=== PATIENT | female | born 1950 | race Caucasian/White ===

== ENCOUNTER 2024-04-18 11:27 | Inpatient (IN) | payer MEDICARE, OTHER ==
[~2024-04-18] VITALS: Ht 152.4 cm; Wt 54.4 kg
[2024-04-18] MEDS ORDERED: ATEN50TA PO (11:46)
[2024-04-18] MEDS ORDERED: [UNRECOGNIZED DRUG - OTHER] (11:46)
[2024-04-18] MEDS ORDERED: MAGNESIUM CITRATE (11:46)
[2024-04-18] MEDS ORDERED: TELM40TA2 PO (11:46)
[2024-04-18] MEDS ORDERED: [UNRECOGNIZED DRUG - OTHER] (11:46)
[2024-04-18 12:11] LABS: BASOPHILS # (AUTO) 0.1 K/UL (0.0-0.2); BASOPHILS % (AUTO) 1.1 % (0.0-2.0); EOSINOPHILS # (AUTO) 0.1 K/uL (0.0-0.7); EOSINOPHILS % (AUTO) 0.9 % (0.0-7.0); HEMATOCRIT 33.1 % (31.2-41.9); HEMOGLOBIN 11.4 g/dL (10.9-14.3); LYMPHOCYTES # (AUTO) 1.6 K/uL (0.8-4.8); LYMPHOCYTES % (AUTO) 23.9 % (20.5-51.5); MEAN CORPUSCULAR HEMOGLOBIN 29.7 uug (24.7-32.8); MEAN CORPUSCULAR HGB CONC 34 g/dL (32.3-35.6); MEAN CORPUSCULAR VOLUME 86.4 fL (75.5-95.3); MONOCYTES # (AUTO) 0.7 K/uL (0.1-1.30); MONOCYTES % (AUTO) 9.7 % (0.0-11.0); NEUTROPHILS # (AUTO) 4.4 K/uL (1.8-8.9); NEUTROPHILS % (AUTO) 64.4 % (38.5-71.5); PLATELET COUNT (AUTO) 390 K/uL (179-408); RED BLOOD CELL COUNT(AUTO) 3.83 MIL/uL (3.63-4.92); WHITE BLOOD COUNT (AUTO) 6.8 K/uL (3.8-11.8)
[2024-04-18 12:17] LABS: DIFFERENTIAL COMMENT 1
[2024-04-18 12:24] LABS: ERYTHROCYTE SEDIMENTATION RATE 57 MM/HR (0-20)
[2024-04-18 13:23] LABS: ALANINE AMINOTRANSFERASE 16 U/L (14-59); ALBUMIN 2.7 g/dL (3.4-5.0); ALKALINE PHOSPHATASE 86 U/L (50-136); ASPARTATE AMINOTRANSFERASE 15 U/L (15-37); BILIRUBIN,TOTAL 0.8 mg/dL (0.2-1.0); CALCIUM 7.9 mg/dL (8.5-10.1); CARBON DIOXIDE 30 mmol/L (21-32); CHLORIDE 81 mmol/L (98-107); CREATININE 0.6 mg/dL (0.6-1.3); GLUCOSE 112 mg/dL (74-106); TOTAL PROTEIN, SERUM 6.5 g/dL (6.4-8.2); UREA NITROGEN, BLOOD 12 mg/dL (7-18)
[2024-04-18 13:27] LABS: POTASSIUM 2.6 mmol/L (3.5-5.1); SODIUM SERUM 117 mmol/L (136-145)
[2024-04-18] MEDS ORDERED: POTASSIUM BICARBONATE/CIT AC 25 MEQ TABLET.EFF ONE (13:53)
[2024-04-18] MEDS ORDERED: MAGNESIUM SULFATE/D5W 300 ML ONE (13:53)
[2024-04-18] MEDS: POTASSIUM BICARBONATE/CIT AC 25 MEQ TABLET.EFF PO ONE (14:03)
[2024-04-18] MEDS: IV NS 1000 ML 1,000 ML IV ONE (14:03)
[2024-04-18] MEDS: MAGNESIUM SULFATE/D5W 100 ML IV SCH (14:03)
[2024-04-18 14:09] LABS: *BILIRUBIN,URIN NEGATIVE (NEGATIVE); *BLOOD, URINE NEGATIVE (NEGATIVE); *CLARITY,URINE CLEAR (CLEAR); *COLOR,URINE YELLOW (YELLOW); *KETONES,URINE NEGATIVE (NEGATIVE); *PROTEIN,URINE 1+ (NEGATIVE); *UROBILINOGEN,URINE 0.2 E.U./dl (NORMAL); LEUKOCYTE ESTERASE ,URINE 1+ (NEGATIVE); NITRITE, URINE NEGATIVE (NEGATIVE); UGLUCOSE NEGATIVE (NEGATIVE)
[2024-04-18 14:17] LABS: *SODIUM RNDM,URINE 59 mmol/L (40-220)
[2024-04-18] MEDS ORDERED: hydrALAZINE HCL 20 MG/1 ML VIAL ONE (15:08)
[2024-04-18] MEDS: hydrALAZINE HCL 20 MG/1 ML VIAL IV ONE (15:16)
[2024-04-18 15:50] VITALS: BP 133/63; TEMP 98.2; O2SAT 95
[2024-04-18] MEDS ORDERED: ZOLPIDEM 5 MG TABLET PO PRN (16:45)
[2024-04-18 17:09] LABS: RBC,URINE 0-3 /HPF (0-3)
[2024-04-18 17:55] LABS: THYROID STIMULATING HORMONE 0.953 mIU/mL (0.358-3.740)
[2024-04-18 20:59] VITALS: BP 151/68; TEMP 98.1; O2SAT 97
[2024-04-18] MEDS: IV NS 1000 ML 1,000 ML IV PRN (23:10)
[2024-04-19] MEDS: MAGNESIUM HYDROXIDE 30 ML LIQUID UDC PO PRN (04:06)
[2024-04-19] MEDS: ACETAMINOPHEN 325 MG TABLET PO PRN (04:07)
[2024-04-19 06:11] VITALS: BP 142/70; TEMP 97.8; O2SAT 97
[2024-04-19] MEDS: PANTOPRAZOLE SODIUM 40 MG TABLET.DR PO SCH (06:55)
[2024-04-19 08:00] VITALS: BP 150/77; TEMP 98.4; O2SAT 96
[2024-04-19 08:02] LABS: BASOPHILS # (AUTO) 0.1 K/UL (0.0-0.2); BASOPHILS % (AUTO) 1.7 % (0.0-2.0); EOSINOPHILS % (AUTO) 0.4 % (0.0-7.0); HEMATOCRIT 33.1 % (31.2-41.9); HEMOGLOBIN 11.5 g/dL (10.9-14.3); LYMPHOCYTES # (AUTO) 1.5 K/uL (0.8-4.8); LYMPHOCYTES % (AUTO) 21.1 % (20.5-51.5); MEAN CORPUSCULAR HEMOGLOBIN 29.9 uug (24.7-32.8); MEAN CORPUSCULAR HGB CONC 35 g/dL (32.3-35.6); MEAN CORPUSCULAR VOLUME 85.9 fL (75.5-95.3); MONOCYTES # (AUTO) 0.6 K/uL (0.1-1.30); MONOCYTES % (AUTO) 8.7 % (0.0-11.0); NEUTROPHILS % (AUTO) 68.1 % (38.5-71.5); PLATELET COUNT (AUTO) 411 K/uL (179-408); RED BLOOD CELL COUNT(AUTO) 3.85 MIL/uL (3.63-4.92); WHITE BLOOD COUNT (AUTO) 7.3 K/uL (3.8-11.8)
[2024-04-19 08:28] LABS: CALCIUM 8.4 mg/dL (8.5-10.1); CARBON DIOXIDE 30 mmol/L (21-32); CHLORIDE 86 mmol/L (98-107); CREATININE 0.5 mg/dL (0.6-1.3); GLUCOSE 107 mg/dL (74-106); MAGNESIUM 1.6 mg/dL (1.8-2.4); PHOSPHOROUS 3.3 mg/dL (2.5-4.9); SODIUM SERUM 123 mmol/L (136-145); UREA NITROGEN, BLOOD 8 mg/dL (7-18)
[2024-04-19 08:30] VITALS: BP 181/81; O2SAT 96
[2024-04-19 08:30] LABS: POTASSIUM 2.3 mmol/L (3.5-5.1)
[2024-04-19] MEDS: POTASSIUM CHLORIDE 50 ML IV SCH (10:51)
[2024-04-19 11:01] VITALS: BP 153/71; TEMP 99.7; O2SAT 95
[2024-04-19] MEDS: MAGNESIUM OXIDE 400 MG TABLET PO ONE (11:16)
[2024-04-19] MEDS: ONDANSETRON 4 MG/2 ML VIAL IV PRN (13:36)
[2024-04-19] MEDS ORDERED: DIATR MEGLU/DIATRIZOATE SODIUM 30 ML BOTTLE ONE (14:19)
[2024-04-19] MEDS: ATENOLOL 50 MG TABLET PO SCH ×2 (14:36→21:27)
[2024-04-19] MEDS: LOSARTAN POTASSIUM 50 MG TABLET PO SCH (14:36)
[2024-04-19] MEDS: MAGNESIUM SULFATE/D5W 100 ML IV SCH (15:06)
[2024-04-19 15:07] LABS: *CREATININE,URINE 16.8 mg/dL (30-125)
[2024-04-19 15:11] VITALS: BP 171/82; TEMP 98.2; O2SAT 96
[2024-04-19 19:18] LABS: BASOPHILS # (AUTO) 0.1 K/UL (0.0-0.2); BASOPHILS % (AUTO) 1.1 % (0.0-2.0); EOSINOPHILS % (AUTO) 0.2 % (0.0-7.0); HEMATOCRIT 32.2 % (31.2-41.9); HEMOGLOBIN 10.8 g/dL (10.9-14.3); LYMPHOCYTES # (AUTO) 1.4 K/uL (0.8-4.8); LYMPHOCYTES % (AUTO) 12.3 % (20.5-51.5); MEAN CORPUSCULAR HEMOGLOBIN 29.4 uug (24.7-32.8); MEAN CORPUSCULAR HGB CONC 34 g/dL (32.3-35.6); MEAN CORPUSCULAR VOLUME 87.2 fL (75.5-95.3); MONOCYTES # (AUTO) 0.7 K/uL (0.1-1.30); MONOCYTES % (AUTO) 6.3 % (0.0-11.0); NEUTROPHILS # (AUTO) 9.1 K/uL (1.8-8.9); NEUTROPHILS % (AUTO) 80.1 % (38.5-71.5); PLATELET COUNT (AUTO) 381 K/uL (179-408); RED BLOOD CELL COUNT(AUTO) 3.69 MIL/uL (3.63-4.92); WHITE BLOOD COUNT (AUTO) 11.4 K/uL (3.8-11.8)
[2024-04-19 19:20] LABS: DIFFERENTIAL COMMENT 1
[2024-04-19 19:32] LABS: CALCIUM 8.5 mg/dL (8.5-10.1); CARBON DIOXIDE 28 mmol/L (21-32); CHLORIDE 85 mmol/L (98-107); CREATININE 0.6 mg/dL (0.6-1.3); GLUCOSE 141 mg/dL (74-106); POTASSIUM 3.1 mmol/L (3.5-5.1); UREA NITROGEN, BLOOD 9 mg/dL (7-18)
[2024-04-19 19:43] LABS: SODIUM SERUM 122 mmol/L (136-145)
[2024-04-19 20:30] VITALS: BP 176/74; TEMP 98.4; O2SAT 98
[2024-04-20] VITALS (7 sets, daily range): BP systolic 124–185; BP diastolic 61–76; TEMP 97.2–98.4; O2SAT 95–98
[2024-04-20 08:06] LABS: CALCIUM 8.4 mg/dL (8.5-10.1); CARBON DIOXIDE 28 mmol/L (21-32); CHLORIDE 90 mmol/L (98-107); CREATININE 0.5 mg/dL (0.6-1.3); GLUCOSE 106 mg/dL (74-106); MAGNESIUM 1.5 mg/dL (1.8-2.4); PHOSPHOROUS 3.1 mg/dL (2.5-4.9); POTASSIUM 2.8 mmol/L (3.5-5.1); SODIUM SERUM 125 mmol/L (136-145); UREA NITROGEN, BLOOD 7 mg/dL (7-18)
[2024-04-20 08:57] LABS: URIC ACID 1.3 mg/dL (2.6-6.0)
[2024-04-20] MEDS ORDERED: POTASSIUM CHLORIDE 50 ML IV SCH (09:45)
[2024-04-20] MEDS: POTASSIUM CHLORIDE 10 MEQ TAB.PRT.SR PO SCH (09:54)
[2024-04-20] MEDS: MAGNESIUM SULFATE/D5W 100 ML IV SCH (09:55)
[2024-04-20] MEDS: POTASSIUM CHLORIDE 50 ML IV SCH (10:41)
[2024-04-20] MEDS: CLONIDINE-TTS 1 PATCH TD SCH (11:26)
[2024-04-20] MEDS ORDERED: IV NORMAL SALINE 250 ML IV ONE (15:39)
[2024-04-20] MEDS ORDERED: IOHEXOL 300MG/ML 100 ML INFUS..BTL ONE (15:39)
[2024-04-20] MEDS ORDERED: SWABABLE VALVE TRANSFER SET EA MC ONE (15:39)
[2024-04-21 00:13] VITALS: BP 154/70; TEMP 98.1; O2SAT 96
[2024-04-21] MEDS: BISACODYL 10 MG SUPP.RECT RC PRN (06:12)
[2024-04-21 06:52] VITALS: BP 145/70; TEMP 97.2; O2SAT 97
[2024-04-21 07:47] LABS: BASOPHILS # (AUTO) 0.1 K/UL (0.0-0.2); BASOPHILS % (AUTO) 0.9 % (0.0-2.0); EOSINOPHILS % (AUTO) 0.5 % (0.0-7.0); HEMATOCRIT 31.6 % (31.2-41.9); HEMOGLOBIN 11.1 g/dL (10.9-14.3); LYMPHOCYTES # (AUTO) 0.9 K/uL (0.8-4.8); LYMPHOCYTES % (AUTO) 9.9 % (20.5-51.5); MEAN CORPUSCULAR HEMOGLOBIN 30.8 uug (24.7-32.8); MEAN CORPUSCULAR HGB CONC 35 g/dL (32.3-35.6); MEAN CORPUSCULAR VOLUME 87.4 fL (75.5-95.3); MONOCYTES # (AUTO) 0.7 K/uL (0.1-1.30); MONOCYTES % (AUTO) 7.6 % (0.0-11.0); NEUTROPHILS # (AUTO) 7.3 K/uL (1.8-8.9); NEUTROPHILS % (AUTO) 81.1 % (38.5-71.5); PLATELET COUNT (AUTO) 404 K/uL (179-408); RED BLOOD CELL COUNT(AUTO) 3.62 MIL/uL (3.63-4.92); RED CELL DISTRIBUTION WIDTH 15.9 % (12.3-17.7)
[2024-04-21 07:48] VITALS: BP 146/68; TEMP 97.8; O2SAT 97
[2024-04-21 08:01] LABS: DIFFERENTIAL COMMENT 1
[2024-04-21 08:22] LABS: CALCIUM 8.8 mg/dL (8.5-10.1); CARBON DIOXIDE 28 mmol/L (21-32); CHLORIDE 89 mmol/L (98-107); CREATININE 0.6 mg/dL (0.6-1.3); GLUCOSE 120 mg/dL (74-106); MAGNESIUM 1.3 mg/dL (1.8-2.4); SODIUM SERUM 126 mmol/L (136-145); UREA NITROGEN, BLOOD 11 mg/dL (7-18)
[2024-04-21 08:29] LABS: POTASSIUM 2.6 mmol/L (3.5-5.1)
[2024-04-21] MEDS ORDERED: QUETIAPINE FUMARATE 25 MG TABLET PO PRN (08:45)
[2024-04-21] MEDS ORDERED: SWABABLE VALVE TRANSFER SET EA MC ONE (09:47)
[2024-04-21] MEDS ORDERED: IOHEXOL 350 100 ML INFUS..BTL ONE (09:47)
[2024-04-21] MEDS ORDERED: IV NORMAL SALINE 250 ML IV ONE (09:47)
[2024-04-21] MEDS ORDERED: POTASSIUM CHLORIDE 10 MEQ TAB.PRT.SR PO ONE (10:30)
[2024-04-21] MEDS: POTASSIUM CHLORIDE 50 ML IV SCH (10:37)
[2024-04-21] MEDS: POTASSIUM CHLORIDE 20 MEQ TAB.PRT.SR PO ONE (10:57)
[2024-04-21] MEDS: MAGNESIUM SULFATE/D5W 100 ML IV SCH (11:41)
[2024-04-21 11:54] VITALS: BP 162/83; TEMP 98.4; O2SAT 98
[2024-04-21 11:54] LABS: THYROID STIMULATING HORMONE 1.16 mIU/mL (0.358-3.740)
[2024-04-21] MEDS ORDERED: MAGNESIUM SULFATE/D5W 100 ML IV SCH (14:15)
[2024-04-21 16:08] VITALS: BP 149/69; TEMP 98.2; O2SAT 97
[2024-04-21 19:50] VITALS: BP 146/75; TEMP 98.3; O2SAT 96
[2024-04-22 06:01] VITALS: BP 154/77; TEMP 98.3; O2SAT 96
[2024-04-22 07:37] LABS: CALCIUM 8.5 mg/dL (8.5-10.1); CARBON DIOXIDE 28 mmol/L (21-32); CHLORIDE 91 mmol/L (98-107); CREATININE 0.6 mg/dL (0.6-1.3); GLUCOSE 116 mg/dL (74-106); MAGNESIUM 1.7 mg/dL (1.8-2.4); PHOSPHOROUS 3.5 mg/dL (2.5-4.9); POTASSIUM 3.2 mmol/L (3.5-5.1); SODIUM SERUM 126 mmol/L (136-145); UREA NITROGEN, BLOOD 11 mg/dL (7-18)
[2024-04-22 07:38] VITALS: BP 138/73; TEMP 98.6; O2SAT 95
[2024-04-22 07:40] LABS: BASOPHILS # (AUTO) 0.1 K/UL (0.0-0.2); BASOPHILS % (AUTO) 2.9 % (0.0-2.0); EOSINOPHILS # (AUTO) 0.1 K/uL (0.0-0.7); EOSINOPHILS % (AUTO) 2.4 % (0.0-7.0); HEMATOCRIT 30.3 % (31.2-41.9); HEMOGLOBIN 10.6 g/dL (10.9-14.3); LYMPHOCYTES # (AUTO) 1.4 K/uL (0.8-4.8); LYMPHOCYTES % (AUTO) 35.8 % (20.5-51.5); MEAN CORPUSCULAR HEMOGLOBIN 30.6 uug (24.7-32.8); MEAN CORPUSCULAR HGB CONC 35 g/dL (32.3-35.6); MONOCYTES # (AUTO) 0.6 K/uL (0.1-1.30); MONOCYTES % (AUTO) 14.7 % (0.0-11.0); NEUTROPHILS # (AUTO) 1.8 K/uL (1.8-8.9); NEUTROPHILS % (AUTO) 44.2 % (38.5-71.5); PLATELET COUNT (AUTO) 375 K/uL (179-408); RED BLOOD CELL COUNT(AUTO) 3.48 MIL/uL (3.63-4.92); RED CELL DISTRIBUTION WIDTH 16.5 % (12.3-17.7)
[2024-04-22 07:48] LABS: DIFFERENTIAL COMMENT 1
[2024-04-22] MEDS: REMEDY ESSENTIAL ZINC PASTE 113 GM TP PRN (08:54)
[2024-04-22] MEDS: MAGNESIUM SULFATE/D5W 100 ML IV SCH (10:28)
[2024-04-22] MEDS: POTASSIUM CHLORIDE 20 MEQ TAB.PRT.SR PO ONE (10:28)
[2024-04-22 11:39] VITALS: BP 139/64; TEMP 98.6; O2SAT 97
[2024-04-22 15:45] VITALS: BP 151/67; TEMP 98.2; O2SAT 98
[2024-04-22 16:53] LABS: CALCIUM 8.3 mg/dL (8.5-10.1); CARBON DIOXIDE 27 mmol/L (21-32); CHLORIDE 91 mmol/L (98-107); CREATININE 0.6 mg/dL (0.6-1.3); GLUCOSE 139 mg/dL (74-106); POTASSIUM 3.8 mmol/L (3.5-5.1); SODIUM SERUM 125 mmol/L (136-145); UREA NITROGEN, BLOOD 17 mg/dL (7-18); URIC ACID 0.9 mg/dL (2.6-6.0)
[2024-04-22 17:03] LABS: THYROID STIMULATING HORMONE 1.061 mIU/mL (0.358-3.740)
[2024-04-22 17:19] LABS: *SODIUM RNDM,URINE 107 mmol/L (40-220)
[2024-04-22 20:02] VITALS: BP 143/62; TEMP 98.1; O2SAT 99
[2024-04-22] MEDS: NITROFURANTOIN/NITROFURAN MAC 100 MG CAPSULE PO SCH (21:17)
[2024-04-23 00:10] VITALS: BP 158/81; TEMP 98.1; O2SAT 97
[2024-04-23 05:30] VITALS: BP 164/75; TEMP 98.1; O2SAT 96
[2024-04-23 06:25] VITALS: BP 148/84; O2SAT 97
[2024-04-23 07:33] LABS: CALCIUM 8.7 mg/dL (8.5-10.1); CARBON DIOXIDE 29 mmol/L (21-32); CHLORIDE 89 mmol/L (98-107); CREATININE 0.6 mg/dL (0.6-1.3); GLUCOSE 106 mg/dL (74-106); MAGNESIUM 1.4 mg/dL (1.8-2.4); PHOSPHOROUS 3.8 mg/dL (2.5-4.9); POTASSIUM 2.9 mmol/L (3.5-5.1); SODIUM SERUM 125 mmol/L (136-145); UREA NITROGEN, BLOOD 13 mg/dL (7-18)
[2024-04-23] MEDS: MAGNESIUM SULFATE/D5W 100 ML IV SCH (09:19)
[2024-04-23] MEDS: POTASSIUM CHLORIDE 10 MEQ TAB.PRT.SR PO SCH (09:27)
[2024-04-23 11:25] VITALS: BP 138/67; TEMP 98.4; O2SAT 96
[2024-04-23] MEDS: levETIRAcetam 500 MG TABLET PO ONE (14:21)
[2024-04-23 15:51] VITALS: BP 145/61; TEMP 98.6; O2SAT 96
[2024-04-23 20:51] VITALS: BP 135/61; TEMP 98.1; O2SAT 98
[2024-04-24 00:05] VITALS: BP 122/80; TEMP 98.5; O2SAT 97
[2024-04-24 05:24] VITALS: BP 126/63; TEMP 97.8; O2SAT 98
[2024-04-24 07:25] LABS: CALCIUM 8.9 mg/dL (8.5-10.1); CARBON DIOXIDE 29 mmol/L (21-32); CHLORIDE 90 mmol/L (98-107); CREATININE 0.7 mg/dL (0.6-1.3); GLUCOSE 108 mg/dL (74-106); MAGNESIUM 1.8 mg/dL (1.8-2.4); POTASSIUM 3.5 mmol/L (3.5-5.1); SODIUM SERUM 126 mmol/L (136-145); UREA NITROGEN, BLOOD 20 mg/dL (7-18)
[2024-04-24] MEDS: levETIRAcetam 500 MG TABLET PO SCH (08:57)
[2024-04-24 08:58] VITALS: BP 126/63
[2024-04-24] MEDS ORDERED: LEVE500T9 PO (14:18)
[2024-04-24] MEDS ORDERED: NITR100C11 PO (14:19)
[2024-04-24] MEDS: SODIUM CHLORIDE 1,000 MG TABLET PO SCH (16:11)
[2024-04-24] MEDS ORDERED: DEMECLOCYCLINE HCL 150 MG TABLET PO SCH (21:00)
== END 2024-04-24 16:50 | disposition home health service (06) | DRG 644 ==
LOC: ER 11:27 → TELE3 15:44
PROC: 05HC33Z Insertion of Infusion Device into Left Basilic Vein, Percutaneous Approach (ICD-10-PCS; principal; 2024-04-21)
DX: E22.2 Syndrome of inappropriate secretion of antidiuretic hormone (principal); N39.0 Urinary tract infection, site not specified; E87.6 Hypokalemia; R13.10 Dysphagia, unspecified; B95.2 Enterococcus as the cause of diseases classified elsewhere; E83.42 Hypomagnesemia; E86.9 Volume depletion, unspecified; I10 Essential (primary) hypertension; R56.9 Unspecified convulsions; R63.4 Abnormal weight loss; Z68.23 Body mass index [BMI] 23.0-23.9, adult; Z86.19 Personal history of other infectious and parasitic diseases; F39 Unspecified mood [affective] disorder
CPT/HCPCS: 36415; 70450; 70496; 71045; 71260; 74220; 76770; 82533; 83735; 83921; 84100; 84300; 84443; 84484; 84550; 85025; 85651; 85730; 86850; 86900; 86901; 93005; 95819; A4663; G0378; J0360; J2405; J3475; J3480; J7040; Q9963; Q9967

== ENCOUNTER 2024-05-04 15:11 | Inpatient (IN) | payer MEDICARE, OTHER ==
[~2024-05-04] VITALS: Ht 152.4 cm; Wt 46.3 kg
[~2024-05-04 15:11] MED LIST: ATEN50TA PO; LEVE500T9 PO; NITR100C11 PO; TELM40TA2 PO
[2024-05-04] MEDS ORDERED: AMLO-212 PO (15:24)
[2024-05-04 15:50] LABS: BASOPHILS # (AUTO) 0.1 K/UL (0.0-0.2); BASOPHILS % (AUTO) 1.2 % (0.0-2.0); EOSINOPHILS # (AUTO) 0.1 K/uL (0.0-0.7); EOSINOPHILS % (AUTO) 1.8 % (0.0-7.0); HEMATOCRIT 34.5 % (31.2-41.9); HEMOGLOBIN 11.7 g/dL (10.9-14.3); LYMPHOCYTES # (AUTO) 1.6 K/uL (0.8-4.8); LYMPHOCYTES % (AUTO) 31.4 % (20.5-51.5); MEAN CORPUSCULAR HEMOGLOBIN 30.1 uug (24.7-32.8); MEAN CORPUSCULAR HGB CONC 34 g/dL (32.3-35.6); MEAN CORPUSCULAR VOLUME 88.7 fL (75.5-95.3); MONOCYTES # (AUTO) 0.6 K/uL (0.1-1.30); MONOCYTES % (AUTO) 12.5 % (0.0-11.0); NEUTROPHILS # (AUTO) 2.7 K/uL (1.8-8.9); NEUTROPHILS % (AUTO) 53.1 % (38.5-71.5); PLATELET COUNT (AUTO) 337 K/uL (179-408); RED BLOOD CELL COUNT(AUTO) 3.89 MIL/uL (3.63-4.92); RED CELL DISTRIBUTION WIDTH 18.3 % (12.3-17.7); WHITE BLOOD COUNT (AUTO) 5.2 K/uL (3.8-11.8)
[2024-05-04 15:58] LABS: CARBON DIOXIDE 30 mmol/L (21-32); CHLORIDE 91 mmol/L (98-107); CREATININE 0.6 mg/dL (0.6-1.3); GLUCOSE 113 mg/dL (74-106); SODIUM SERUM 132 mmol/L (136-145); UREA NITROGEN, BLOOD 12 mg/dL (7-18)
[2024-05-04 15:59] LABS: DIFFERENTIAL COMMENT 1
[2024-05-04 16:00] LABS: POTASSIUM 2.5 mmol/L (3.5-5.1)
[2024-05-04] MEDS ORDERED: REMEDY ESSENTIAL ZINC PASTE 113 GM TP PRN (17:00)
[2024-05-04] MEDS ORDERED: ONDANSETRON 4 MG/2 ML VIAL IV PRN (17:00)
[2024-05-04] MEDS: [UNRECOGNIZED DRUG - OTHER] IV ONE (17:05)
[2024-05-04] MEDS: KCL IV ONE (17:05)
[2024-05-04] MEDS ORDERED: MAGNESIUM SULFATE/D5W 200 ML ONE (17:20)
[2024-05-04] MEDS: MAGNESIUM SULFATE/D5W 100 ML IV ONE (17:30)
[2024-05-04] MEDS: POTASSIUM CHLORIDE 40 MEQ in IV 1/2NS 1000 ML 1,000 ML IV ONE (17:32)
[2024-05-04 20:06] LABS: *BILIRUBIN,URIN NEGATIVE (NEGATIVE); *CLARITY,URINE CLEAR (CLEAR); *COLOR,URINE YELLOW (YELLOW); *KETONES,URINE NEGATIVE (NEGATIVE); *PROTEIN,URINE 1+ (NEGATIVE); *UROBILINOGEN,URINE 0.2 E.U./dl (NORMAL); LEUKOCYTE ESTERASE ,URINE NEGATIVE (NEGATIVE); NITRITE, URINE NEGATIVE (NEGATIVE); UGLUCOSE NEGATIVE (NEGATIVE)
[2024-05-04 20:09] LABS: *BLOOD, URINE TRACE (NEGATIVE)
[2024-05-04 20:11] LABS: *POTASSIUM RNDM,URINE 38 mmol/L (25-125); *SODIUM RNDM,URINE 94 mmol/L (40-220)
[2024-05-04 20:21] LABS: BACTERIA,URINE FEW /HPF (NONE SEEN); RBC,URINE 0-3 /HPF (0-3); SQUAMOUS EPITHELIAL CELL,UR MODERATE /HPF (NONE SEEN); WBC,URINE 0-3 /HPF (0-3)
[2024-05-04 21:30] VITALS: BP 153/77; TEMP 98.1; O2SAT 94
[2024-05-05] VITALS (10 sets, daily range): BP systolic 120–186; BP diastolic 64–91; TEMP 98–98.6; O2SAT 94–97
[2024-05-05] MEDS: ACETAMINOPHEN 325 MG TABLET PO PRN (01:32)
[2024-05-05] MEDS ORDERED: MISCELLANEOUS MED XX PRN (04:45)
[2024-05-05] MEDS: ATENOLOL 50 MG TABLET PO SCH (04:55)
[2024-05-05 07:54] LABS: BASOPHILS # (AUTO) 0.1 K/UL (0.0-0.2); BASOPHILS % (AUTO) 2.8 % (0.0-2.0); DIFFERENTIAL COMMENT 1; EOSINOPHILS # (AUTO) 0.1 K/uL (0.0-0.7); EOSINOPHILS % (AUTO) 2.3 % (0.0-7.0); HEMATOCRIT 32.7 % (31.2-41.9); HEMOGLOBIN 11.4 g/dL (10.9-14.3); LYMPHOCYTES # (AUTO) 1.5 K/uL (0.8-4.8); MEAN CORPUSCULAR HEMOGLOBIN 30.6 uug (24.7-32.8); MEAN CORPUSCULAR HGB CONC 35 g/dL (32.3-35.6); MEAN CORPUSCULAR VOLUME 87.7 fL (75.5-95.3); MONOCYTES # (AUTO) 0.5 K/uL (0.1-1.30); MONOCYTES % (AUTO) 12.3 % (0.0-11.0); NEUTROPHILS # (AUTO) 1.9 K/uL (1.8-8.9); NEUTROPHILS % (AUTO) 46.6 % (38.5-71.5); PLATELET COUNT (AUTO) 337 K/uL (179-408); RED BLOOD CELL COUNT(AUTO) 3.73 MIL/uL (3.63-4.92); RED CELL DISTRIBUTION WIDTH 18.2 % (12.3-17.7); WHITE BLOOD COUNT (AUTO) 4.1 K/uL (3.8-11.8)
[2024-05-05 08:06] LABS: CARBON DIOXIDE 30 mmol/L (21-32); CHLORIDE 93 mmol/L (98-107); CREATININE 0.5 mg/dL (0.6-1.3); GLUCOSE 113 mg/dL (74-106); MAGNESIUM 1.6 mg/dL (1.8-2.4); SODIUM SERUM 132 mmol/L (136-145); UREA NITROGEN, BLOOD 7 mg/dL (7-18)
[2024-05-05 08:10] LABS: POTASSIUM 2.7 mmol/L (3.5-5.1)
[2024-05-05] MEDS: AMLODIPINE 5 MG TABLET PO SCH (08:20)
[2024-05-05] MEDS: levETIRAcetam 500 MG TABLET PO SCH ×2 (08:21→17:13)
[2024-05-05] MEDS: LOSARTAN POTASSIUM 50 MG TABLET PO PRN (08:21)
[2024-05-05] MEDS ORDERED: POTASSIUM CHLORIDE 20 MEQ TAB.PRT.SR PO ONE (08:30)
[2024-05-05] MEDS: MAGNESIUM SULFATE/D5W 100 ML IV SCH (09:28)
[2024-05-05] MEDS: POTASSIUM CHLORIDE 20 MEQ TAB.PRT.SR PO SCH (09:36)
[2024-05-05] MEDS ORDERED: LOSARTAN POTASSIUM 50 MG TABLET PO PRN (10:15)
[2024-05-05] MEDS ORDERED: ATENOLOL 50 MG TABLET PO SCH (10:15)
[2024-05-05 17:32] LABS: CARBON DIOXIDE 28 mmol/L (21-32); CHLORIDE 93 mmol/L (98-107); CREATININE 0.8 mg/dL (0.6-1.3); GLUCOSE 124 mg/dL (74-106); POTASSIUM 4.6 mmol/L (3.5-5.1); SODIUM SERUM 129 mmol/L (136-145); UREA NITROGEN, BLOOD 14 mg/dL (7-18)
[2024-05-05] MEDS: IV NS 1000 ML 1,000 ML IV PRN (22:24)
[2024-05-06 04:00] VITALS: BP 156/82; TEMP 98.1; O2SAT 95
[2024-05-06 07:42] VITALS: BP 151/79; TEMP 98.8; O2SAT 97
[2024-05-06 08:04] LABS: BASOPHILS # (AUTO) 0.1 K/UL (0.0-0.2); BASOPHILS % (AUTO) 1.7 % (0.0-2.0); EOSINOPHILS # (AUTO) 0.1 K/uL (0.0-0.7); EOSINOPHILS % (AUTO) 3.3 % (0.0-7.0); HEMATOCRIT 32.9 % (31.2-41.9); HEMOGLOBIN 11.6 g/dL (10.9-14.3); LYMPHOCYTES # (AUTO) 1.6 K/uL (0.8-4.8); LYMPHOCYTES % (AUTO) 38.7 % (20.5-51.5); MEAN CORPUSCULAR HEMOGLOBIN 31.4 uug (24.7-32.8); MEAN CORPUSCULAR HGB CONC 35 g/dL (32.3-35.6); MEAN CORPUSCULAR VOLUME 88.7 fL (75.5-95.3); MONOCYTES # (AUTO) 0.5 K/uL (0.1-1.30); MONOCYTES % (AUTO) 12.1 % (0.0-11.0); NEUTROPHILS # (AUTO) 1.9 K/uL (1.8-8.9); NEUTROPHILS % (AUTO) 44.2 % (38.5-71.5); PLATELET COUNT (AUTO) 350 K/uL (179-408); RED BLOOD CELL COUNT(AUTO) 3.71 MIL/uL (3.63-4.92); RED CELL DISTRIBUTION WIDTH 19.4 % (12.3-17.7); WHITE BLOOD COUNT (AUTO) 4.2 K/uL (3.8-11.8)
[2024-05-06 08:06] LABS: AFP, TUMOR MARKER <1.8 ng/mL (0.0-9.2); CARBOHYDRATE ANTIGEN, 19-9 20 U/mL (0-35); CARCINOEMBRYONIC AG (CEA) 5.9 ng/mL (0.0-4.7)
[2024-05-06 08:06] LABS: DIFFERENTIAL COMMENT 1
[2024-05-06 08:11] LABS: CALCIUM 8.8 mg/dL (8.5-10.1); CARBON DIOXIDE 28 mmol/L (21-32); CHLORIDE 97 mmol/L (98-107); CREATININE 0.6 mg/dL (0.6-1.3); GLUCOSE 107 mg/dL (74-106); POTASSIUM 3.7 mmol/L (3.5-5.1); SODIUM SERUM 133 mmol/L (136-145); UREA NITROGEN, BLOOD 12 mg/dL (7-18)
[2024-05-06] MEDS: ATENOLOL 50 MG TABLET PO SCH (08:21)
[2024-05-06] MEDS: AMLODIPINE 5 MG TABLET PO SCH (08:21)
[2024-05-06] MEDS ORDERED: POTA10CA43 PO (09:07)
[2024-05-06] MEDS ORDERED: MAGN400T26 PO (09:07)
[2024-05-06 11:06] LABS: CORTISOL AM 19.2 ug/dL (6.2-19.4)
[2024-05-06 11:30] VITALS: BP 162/81; TEMP 98.6; O2SAT 96
== END 2024-05-06 11:05 | disposition home or self-care (01) | DRG 641 ==
LOC: ER 15:33 → TELE3 20:11
PROVIDERS: ADMIT Nurse Practitioner Family; ATTEND Internal Medicine
DX: E83.42 Hypomagnesemia (principal); E87.1 Hypo-osmolality and hyponatremia; E87.6 Hypokalemia; R97.0 Elevated carcinoembryonic antigen [CEA]; K57.30 Diverticulosis of large intestine without perforation or abscess without bleeding; G40.909 Epilepsy, unspecified, not intractable, without status epilepticus; I10 Essential (primary) hypertension; Z79.899 Other long term (current) drug therapy; R53.1 Weakness
CPT/HCPCS: 36415; 82088; 82105; 82378; 82533; 83735; 84100; 84133; 84300; 84550; 85025; 86301; 93005; G0378; J3475; J3480

== ENCOUNTER 2024-05-10 05:05 | Inpatient (IN) | payer MEDICARE, OTHER ==
[~2024-05-10] VITALS: Ht 152.4 cm; Wt 54.4 kg
[~2024-05-10 05:05] MED LIST changes: +AMLO-212 PO; +MAGN400T26 PO; -NITR100C11 PO; +POTA10CA43 PO; -TELM40TA2 PO
[2024-05-10] MEDS: IV NORMAL SALINE 500 ML BAG IV ONE (06:16)
[2024-05-10 06:37] LABS: CARBON DIOXIDE 29 mmol/L (21-32); CHLORIDE 91 mmol/L (98-107); CREATININE 0.6 mg/dL (0.6-1.3); GLUCOSE 123 mg/dL (74-106); POTASSIUM 3.8 mmol/L (3.5-5.1); SODIUM SERUM 130 mmol/L (136-145); UREA NITROGEN, BLOOD 8 mg/dL (7-18)
[2024-05-10 06:43] LABS: ALANINE AMINOTRANSFERASE 23 U/L (14-59); ALBUMIN 3.7 g/dL (3.4-5.0); ALKALINE PHOSPHATASE 105 U/L (50-136); ASPARTATE AMINOTRANSFERASE 20 U/L (15-37); BILIRUBIN,DIRECT 0.1 mg/dL (0.0-0.2); BILIRUBIN,TOTAL 0.5 mg/dL (0.2-1.0); TOTAL PROTEIN, SERUM 9.2 g/dL (6.4-8.2)
[2024-05-10 07:24] LABS: BASOPHILS # (AUTO) 0.1 K/UL (0.0-0.2); BASOPHILS % (AUTO) 0.7 % (0.0-2.0); EOSINOPHILS # (AUTO) 0.1 K/uL (0.0-0.7); EOSINOPHILS % (AUTO) 0.9 % (0.0-7.0); HEMATOCRIT 32.3 % (31.2-41.9); HEMOGLOBIN 11.3 g/dL (10.9-14.3); LYMPHOCYTES # (AUTO) 1.4 K/uL (0.8-4.8); LYMPHOCYTES % (AUTO) 11.9 % (20.5-51.5); MEAN CORPUSCULAR HEMOGLOBIN 31.3 uug (24.7-32.8); MEAN CORPUSCULAR HGB CONC 35 g/dL (32.3-35.6); MEAN CORPUSCULAR VOLUME 89.6 fL (75.5-95.3); MONOCYTES # (AUTO) 0.7 K/uL (0.1-1.30); MONOCYTES % (AUTO) 6.1 % (0.0-11.0); NEUTROPHILS # (AUTO) 9.5 K/uL (1.8-8.9); NEUTROPHILS % (AUTO) 80.4 % (38.5-71.5); RED BLOOD CELL COUNT(AUTO) 3.61 MIL/uL (3.63-4.92); RED CELL DISTRIBUTION WIDTH 18.9 % (12.3-17.7); WHITE BLOOD COUNT (AUTO) 11.8 K/uL (3.8-11.8)
[2024-05-10 07:50] LABS: *BILIRUBIN,URIN NEGATIVE (NEGATIVE); *CLARITY,URINE CLEAR (CLEAR); *COLOR,URINE YELLOW (YELLOW); *KETONES,URINE NEGATIVE (NEGATIVE); *PROTEIN,URINE NEGATIVE (NEGATIVE); *UROBILINOGEN,URINE 0.2 E.U./dl (NORMAL); LEUKOCYTE ESTERASE ,URINE NEGATIVE (NEGATIVE); NITRITE, URINE NEGATIVE (NEGATIVE); PH,URINE 7.5 (5.0-8.0); UGLUCOSE NEGATIVE (NEGATIVE)
[2024-05-10 08:16] LABS: DIFFERENTIAL COMMENT 1
[2024-05-10 08:30] LABS: *BLOOD, URINE TRACE (NEGATIVE)
[2024-05-10] MEDS ORDERED: ONDANSETRON 4 MG/2 ML VIAL ONE (08:45)
[2024-05-10] MEDS ORDERED: MORPHINE SULFATE 4 MG/1 ML DISP.SYRIN ONE (08:45)
[2024-05-10] MEDS: MORPHINE SULFATE 4 MG/1 ML DISP.SYRIN IV STA (08:58)
[2024-05-10] MEDS: ONDANSETRON 4 MG/2 ML VIAL IV PRN (08:58)
[2024-05-10 09:23] VITALS: BP 129/75; TEMP 98.4; O2SAT 92
[2024-05-10 09:36] LABS: PLATELET COUNT (AUTO) 331 K/uL (179-408)
[2024-05-10 09:42] LABS: BACTERIA,URINE NONE SEEN /HPF (NONE SEEN); WBC,URINE 0-3 /HPF (0-3)
[2024-05-10] MEDS ORDERED: MAGN400T30 PO (11:07)
[2024-05-10] MEDS ORDERED: POTA10CA43 PO (11:07)
[2024-05-10] MEDS ORDERED: LEVE500T9 PO (11:07)
[2024-05-10] MEDS ORDERED: PROPOFOL 200 MG/20 ML BOTTLE ONE (14:10)
[2024-05-10 15:13] VITALS: BP 122/70; TEMP 98.2; O2SAT 92
[2024-05-10 19:00] VITALS: BP 154/84; TEMP 98.9; O2SAT 94
[2024-05-10] MEDS: IV NS 1000 ML 1,000 ML IV PRN (19:59)
[2024-05-10] MEDS ORDERED: ONDANSETRON 4 MG/2 ML VIAL IV PRN (20:00)
[2024-05-10] MEDS ORDERED: ACETAMINOPHEN 325 MG TABLET PO PRN (20:00)
[2024-05-10] MEDS: ENOXAPARIN SODIUM 40 MG/0.4 ML DISP.SYRIN SQ SCH (20:15)
[2024-05-10] MEDS: HYDROCODONE/APAP 5-325MG TABLET PO PRN (20:15)
[2024-05-11 06:00] VITALS: BP 151/77; TEMP 98.6; O2SAT 95
[2024-05-11 08:35] LABS: CALCIUM 8.9 mg/dL (8.5-10.1); CARBON DIOXIDE 27 mmol/L (21-32); CHLORIDE 93 mmol/L (98-107); CREATININE 0.6 mg/dL (0.6-1.3); GLUCOSE 115 mg/dL (74-106); MAGNESIUM 1.4 mg/dL (1.8-2.4); PHOSPHOROUS 3.8 mg/dL (2.5-4.9); SODIUM SERUM 129 mmol/L (136-145); UREA NITROGEN, BLOOD 7 mg/dL (7-18)
[2024-05-11 09:43] LABS: BASOPHILS # (AUTO) 0.1 K/UL (0.0-0.2); BASOPHILS % (AUTO) 1.2 % (0.0-2.0); EOSINOPHILS % (AUTO) 0.6 % (0.0-7.0); HEMATOCRIT 31.7 % (31.2-41.9); HEMOGLOBIN 11.2 g/dL (10.9-14.3); LYMPHOCYTES # (AUTO) 1.6 K/uL (0.8-4.8); LYMPHOCYTES % (AUTO) 26.3 % (20.5-51.5); MEAN CORPUSCULAR HEMOGLOBIN 31.4 uug (24.7-32.8); MEAN CORPUSCULAR HGB CONC 35 g/dL (32.3-35.6); MEAN CORPUSCULAR VOLUME 88.6 fL (75.5-95.3); MONOCYTES # (AUTO) 0.6 K/uL (0.1-1.30); MONOCYTES % (AUTO) 9.6 % (0.0-11.0); NEUTROPHILS # (AUTO) 3.7 K/uL (1.8-8.9); NEUTROPHILS % (AUTO) 62.3 % (38.5-71.5); PLATELET COUNT (AUTO) 300 K/uL (179-408); RED BLOOD CELL COUNT(AUTO) 3.58 MIL/uL (3.63-4.92); RED CELL DISTRIBUTION WIDTH 19.4 % (12.3-17.7)
[2024-05-11 09:45] LABS: DIFFERENTIAL COMMENT 1
[2024-05-11] MEDS: MAGNESIUM SULFATE/D5W 100 ML IV SCH (10:36)
[2024-05-11] MEDS: POTASSIUM CHLORIDE 50 ML IV SCH (11:37)
[2024-05-11 11:52] VITALS: BP 142/78; TEMP 98.4; O2SAT 94
[2024-05-11] MEDS ORDERED: SEVOFLURANE 250 ML BOTTLE ONE (14:47)
[2024-05-11] MEDS ORDERED: FENTANYL CITRATE 100 MCG/2 ML AMPUL ONE (15:10)
[2024-05-11 16:37] VITALS: O2SAT 97
[2024-05-11 17:22] LABS: HEMATOCRIT 30.5 % (31.2-41.9); HEMOGLOBIN 10.4 g/dL (10.9-14.3)
[2024-05-11 20:15] VITALS: BP 119/89; TEMP 97.4; O2SAT 100
[2024-05-11 20:49] LABS: BAND % (MANUAL) 2 % (0-10); LYMPHOCYTES % (MANUAL) 25 % (20-40); MONOCYTES % (MANUAL) 9 % (2-10); NEUTROPHILS % (MANUAL) 64 % (42-75)
[2024-05-11 20:50] LABS: PLATELET ESTIMATE ADEQUATE
[2024-05-11 20:51] LABS: ANISOCYTOSIS 1+
[2024-05-11] MEDS: CEFAZOLIN 1 G in IV DEXTROSE 5% 50 ML IV SCH (21:37)
[2024-05-11 23:55] VITALS: BP 95/52; TEMP 98; O2SAT 95
[2024-05-12 04:00] VITALS: TEMP 98
[2024-05-12] MEDS: ENOXAPARIN SODIUM 40 MG/0.4 ML DISP.SYRIN SQ SCH (08:15)
[2024-05-12 08:30] LABS: BASOPHILS % (AUTO) 0.5 % (0.0-2.0); EOSINOPHILS # (AUTO) 0.1 K/uL (0.0-0.7); EOSINOPHILS % (AUTO) 0.7 % (0.0-7.0); HEMATOCRIT 22.7 % (31.2-41.9); HEMOGLOBIN 7.9 g/dL (10.9-14.3); LYMPHOCYTES # (AUTO) 1.7 K/uL (0.8-4.8); LYMPHOCYTES % (AUTO) 20.6 % (20.5-51.5); MEAN CORPUSCULAR HEMOGLOBIN 31.6 uug (24.7-32.8); MEAN CORPUSCULAR HGB CONC 35 g/dL (32.3-35.6); MEAN CORPUSCULAR VOLUME 90.7 fL (75.5-95.3); MONOCYTES # (AUTO) 0.9 K/uL (0.1-1.30); NEUTROPHILS # (AUTO) 5.5 K/uL (1.8-8.9); NEUTROPHILS % (AUTO) 67.2 % (38.5-71.5); PLATELET COUNT (AUTO) 250 K/uL (179-408); RED CELL DISTRIBUTION WIDTH 19.8 % (12.3-17.7); WHITE BLOOD COUNT (AUTO) 8.1 K/uL (3.8-11.8)
[2024-05-12 08:33] LABS: DIFFERENTIAL COMMENT 1
[2024-05-12 08:48] LABS: CALCIUM 7.9 mg/dL (8.5-10.1); CARBON DIOXIDE 24 mmol/L (21-32); CHLORIDE 99 mmol/L (98-107); CREATININE 0.9 mg/dL (0.6-1.3); GLUCOSE 124 mg/dL (74-106); MAGNESIUM 2.5 mg/dL (1.8-2.4); PHOSPHOROUS 3.3 mg/dL (2.5-4.9); SODIUM SERUM 130 mmol/L (136-145); UREA NITROGEN, BLOOD 20 mg/dL (7-18)
[2024-05-12 10:56] VITALS: BP 99/57; TEMP 98.5; O2SAT 96
[2024-05-12] MEDS ORDERED: ENOX40DI SQ (12:50)
[2024-05-12] MEDS ORDERED: HYDR-3972 PO (12:50)
[2024-05-12] MEDS: levETIRAcetam 500 MG TABLET PO SCH (13:50)
[2024-05-13] MEDS ORDERED: MAGNESIUM OXIDE 400 MG TABLET PO SCH (09:00)
[2024-05-13] MEDS ORDERED: POTASSIUM CHLORIDE 10 MEQ TAB.PRT.SR PO SCH (09:00)
== END 2024-05-12 15:08 | DRG 522 ==
LOC: ER 05:12 → MEDSURG3 08:29
PROVIDERS: ADMIT Nurse Practitioner Acute Care; ATTEND Nurse Practitioner Acute Care
PROC: 0SR906Z Replacement of Right Hip Joint with Oxidized Zirconium on Polyethylene Synthetic Substitute, Open Approach (ICD-10-PCS; principal; 2024-05-10)
PROC: 05HB33Z Insertion of Infusion Device into Right Basilic Vein, Percutaneous Approach (ICD-10-PCS; 2024-05-10)
DX: S72.031A Displaced midcervical fracture of right femur, initial encounter for closed fracture (principal); E87.1 Hypo-osmolality and hyponatremia; W18.30XA Fall on same level, unspecified, initial encounter; G40.909 Epilepsy, unspecified, not intractable, without status epilepticus; K57.30 Diverticulosis of large intestine without perforation or abscess without bleeding; I10 Essential (primary) hypertension; Y93.E8 Activity, other personal hygiene; Y92.019 Unspecified place in single-family (private) house as the place of occurrence of the external cause; E83.42 Hypomagnesemia; M51.36 Other intervertebral disc degeneration, lumbar region; Z79.899 Other long term (current) drug therapy; M15.9 Polyosteoarthritis, unspecified; Z99.3 Dependence on wheelchair; D64.89 Other specified anemias; I95.9 Hypotension, unspecified; R97.0 Elevated carcinoembryonic antigen [CEA]; Z87.440 Personal history of urinary (tract) infections; R13.10 Dysphagia, unspecified; E87.6 Hypokalemia
CPT/HCPCS: 36415; 70030-TC; 71045; 72170; 73501; 73503; 83735; 84100; 85018; 85025; 85730; 86850; 86900; 86901; 86920; 93005; A4663; C1776; G0378; J0690; J1650; J2270; J2405; J3010; J3475; J3480; J3490; J7040

== ENCOUNTER 2024-05-12 15:16 | Inpatient (IN) | payer MEDICARE, OTHER ==
[~2024-05-12] VITALS: Ht 152.4 cm; Wt 54.4 kg
[~2024-05-12 15:16] MED LIST changes: +ENOX40DI SQ; +HYDR-3972 PO; -MAGN400T26 PO; +MAGN400T30 PO
[2024-05-12 16:20] VITALS: BP 128/62; TEMP 98.4; O2SAT 96
[2024-05-12 20:00] VITALS: BP 106/61; TEMP 99.1; O2SAT 94
[2024-05-12] MEDS: HYDROCODONE/APAP 5-325MG TABLET PO PRN (20:18)
[2024-05-12] MEDS ORDERED: HYDROCODONE/APAP 5-325MG TABLET PO PRN (21:00)
[2024-05-13] VITALS (11 sets, daily range): BP systolic 90–151; BP diastolic 48–90; TEMP 97.8–99.3; O2SAT 94–96
[2024-05-13] MEDS: AMLODIPINE 5 MG TABLET PO SCH (08:16)
[2024-05-13] MEDS: MAGNESIUM OXIDE 400 MG TABLET PO SCH (08:16)
[2024-05-13] MEDS: levETIRAcetam 500 MG TABLET PO SCH (08:16)
[2024-05-13] MEDS: ATENOLOL 50 MG TABLET PO SCH (08:17)
[2024-05-13] MEDS: ENOXAPARIN SODIUM 40 MG/0.4 ML DISP.SYRIN SQ SCH (08:19)
[2024-05-13 13:24] LABS: EOSINOPHILS % (AUTO) 0.4 % (0.0-7.0); MONOCYTES # (AUTO) 0.7 K/uL (0.1-1.30)
[2024-05-13 13:26] LABS: BASOPHILS # (AUTO) 0.1 K/UL (0.0-0.2); BASOPHILS % (AUTO) 0.6 % (0.0-2.0); LYMPHOCYTES # (AUTO) 1.9 K/uL (0.8-4.8); LYMPHOCYTES % (AUTO) 21.9 % (20.5-51.5); MEAN CORPUSCULAR HEMOGLOBIN 31.9 uug (24.7-32.8); MEAN CORPUSCULAR HGB CONC 35 g/dL (32.3-35.6); MEAN CORPUSCULAR VOLUME 90.7 fL (75.5-95.3); MONOCYTES % (AUTO) 7.9 % (0.0-11.0); NEUTROPHILS # (AUTO) 5.9 K/uL (1.8-8.9); NEUTROPHILS % (AUTO) 69.2 % (38.5-71.5); PLATELET COUNT (AUTO) 275 K/uL (179-408); RED CELL DISTRIBUTION WIDTH 19.9 % (12.3-17.7); WHITE BLOOD COUNT (AUTO) 8.5 K/uL (3.8-11.8)
[2024-05-13 13:44] LABS: CALCIUM 8.5 mg/dL (8.5-10.1); CARBON DIOXIDE 27 mmol/L (21-32); CHLORIDE 91 mmol/L (98-107); CREATININE 0.7 mg/dL (0.6-1.3); GLUCOSE 148 mg/dL (74-106); POTASSIUM 3.2 mmol/L (3.5-5.1); SODIUM SERUM 127 mmol/L (136-145); UREA NITROGEN, BLOOD 16 mg/dL (7-18)
[2024-05-13 13:57] LABS: DIFFERENTIAL COMMENT 1; RED BLOOD CELL COUNT(AUTO) 2.31 MIL/uL (3.63-4.92)
[2024-05-13 14:00] LABS: HEMOGLOBIN 7.4 g/dL (10.9-14.3)
[2024-05-13] MEDS: ACETAMINOPHEN 325 MG TABLET PO PRN (17:34)
[2024-05-14 05:26] VITALS: BP 137/63; TEMP 99.3; O2SAT 95
[2024-05-14 12:27] LABS: BASOPHILS % (AUTO) 0.5 % (0.0-2.0); EOSINOPHILS % (AUTO) 0.5 % (0.0-7.0); HEMATOCRIT 24.6 % (31.2-41.9); HEMOGLOBIN 8.7 g/dL (10.9-14.3); LYMPHOCYTES # (AUTO) 1.4 K/uL (0.8-4.8); LYMPHOCYTES % (AUTO) 18.2 % (20.5-51.5); MEAN CORPUSCULAR HEMOGLOBIN 31.2 uug (24.7-32.8); MEAN CORPUSCULAR HGB CONC 35 g/dL (32.3-35.6); MEAN CORPUSCULAR VOLUME 88.2 fL (75.5-95.3); MONOCYTES # (AUTO) 0.9 K/uL (0.1-1.30); MONOCYTES % (AUTO) 11.4 % (0.0-11.0); NEUTROPHILS # (AUTO) 5.4 K/uL (1.8-8.9); NEUTROPHILS % (AUTO) 69.4 % (38.5-71.5); PLATELET COUNT (AUTO) 290 K/uL (179-408); RED BLOOD CELL COUNT(AUTO) 2.79 MIL/uL (3.63-4.92); RED CELL DISTRIBUTION WIDTH 17.9 % (12.3-17.7); WHITE BLOOD COUNT (AUTO) 7.8 K/uL (3.8-11.8)
[2024-05-14 12:29] LABS: DIFFERENTIAL COMMENT 1
[2024-05-14 12:37] LABS: CALCIUM 8.7 mg/dL (8.5-10.1); CARBON DIOXIDE 28 mmol/L (21-32); CHLORIDE 93 mmol/L (98-107); CREATININE 0.6 mg/dL (0.6-1.3); GLUCOSE 109 mg/dL (74-106); POTASSIUM 3.6 mmol/L (3.5-5.1); SODIUM SERUM 129 mmol/L (136-145); UREA NITROGEN, BLOOD 11 mg/dL (7-18)
[2024-05-14 16:08] VITALS: BP 109/59; TEMP 98; O2SAT 95
[2024-05-14 20:52] VITALS: BP 116/56; TEMP 98.8; O2SAT 94
[2024-05-15 06:03] VITALS: BP 118/63; TEMP 98.9; O2SAT 94
[2024-05-15 07:51] LABS: BASOPHILS # (AUTO) 0.1 K/UL (0.0-0.2); BASOPHILS % (AUTO) 1.2 % (0.0-2.0); EOSINOPHILS # (AUTO) 0.1 K/uL (0.0-0.7); EOSINOPHILS % (AUTO) 2.1 % (0.0-7.0); HEMATOCRIT 24.6 % (31.2-41.9); HEMOGLOBIN 8.6 g/dL (10.9-14.3); LYMPHOCYTES # (AUTO) 1.7 K/uL (0.8-4.8); MEAN CORPUSCULAR HEMOGLOBIN 30.9 uug (24.7-32.8); MEAN CORPUSCULAR HGB CONC 35 g/dL (32.3-35.6); MEAN CORPUSCULAR VOLUME 88.6 fL (75.5-95.3); MONOCYTES # (AUTO) 0.6 K/uL (0.1-1.30); MONOCYTES % (AUTO) 10.2 % (0.0-11.0); NEUTROPHILS # (AUTO) 3.2 K/uL (1.8-8.9); NEUTROPHILS % (AUTO) 56.5 % (38.5-71.5); PLATELET COUNT (AUTO) 320 K/uL (179-408); RED BLOOD CELL COUNT(AUTO) 2.78 MIL/uL (3.63-4.92); RED CELL DISTRIBUTION WIDTH 17.7 % (12.3-17.7); WHITE BLOOD COUNT (AUTO) 5.7 K/uL (3.8-11.8)
[2024-05-15 07:58] LABS: CALCIUM 8.8 mg/dL (8.5-10.1); CARBON DIOXIDE 31 mmol/L (21-32); CHLORIDE 95 mmol/L (98-107); CREATININE 0.6 mg/dL (0.6-1.3); GLUCOSE 98 mg/dL (74-106); MAGNESIUM 1.4 mg/dL (1.8-2.4); PHOSPHOROUS 3.5 mg/dL (2.5-4.9); POTASSIUM 3.6 mmol/L (3.5-5.1); SODIUM SERUM 130 mmol/L (136-145); UREA NITROGEN, BLOOD 8 mg/dL (7-18); URIC ACID 2.8 mg/dL (2.6-6.0)
[2024-05-15 08:00] VITALS: BP 121/72; TEMP 98.8; O2SAT 95
[2024-05-15 08:14] LABS: DIFFERENTIAL COMMENT 1
[2024-05-15 08:28] LABS: THYROID STIMULATING HORMONE 0.631 mIU/mL (0.358-3.740)
[2024-05-15 15:42] VITALS: BP 115/62; TEMP 98.4; O2SAT 95
[2024-05-15 20:52] VITALS: BP 121/71; TEMP 99
[2024-05-16 05:49] VITALS: BP 136/64; TEMP 98.6; O2SAT 97
[2024-05-16 15:16] VITALS: BP 129/74; TEMP 98.6; O2SAT 92
[2024-05-16 20:36] VITALS: BP 126/66; TEMP 98.9; O2SAT 95
[2024-05-17 06:00] VITALS: BP 137/66; TEMP 98.4; O2SAT 94
[2024-05-17 14:57] VITALS: BP 105/56; TEMP 98.4; O2SAT 96
[2024-05-17 20:38] VITALS: BP 122/75; TEMP 98.2; O2SAT 96
[2024-05-18 05:43] VITALS: BP 118/68; TEMP 97.8; O2SAT 94
[2024-05-18 15:44] VITALS: BP 103/55; TEMP 98.1; O2SAT 96
[2024-05-18 20:00] VITALS: BP 118/60; TEMP 99.1; O2SAT 95
[2024-05-19 04:00] VITALS: BP 126/63; TEMP 96.5; O2SAT 96
[2024-05-19 16:27] VITALS: BP 118/65; TEMP 98; O2SAT 98
[2024-05-19 20:17] VITALS: BP 114/61; TEMP 98.3; O2SAT 97
[2024-05-20 06:01] VITALS: BP 133/77; TEMP 97.8; O2SAT 97
[2024-05-20 12:00] VITALS: BP 100/56; TEMP 98.6; O2SAT 97
[2024-05-20 20:00] VITALS: BP 125/64; TEMP 98.3; O2SAT 94
[2024-05-21 06:00] VITALS: BP 134/65; TEMP 98.2; O2SAT 95
[2024-05-21 15:02] VITALS: BP 135/56; TEMP 98.8; O2SAT 98
[2024-05-21 19:00] VITALS: BP 113/61; TEMP 98.5; O2SAT 96
[2024-05-22 06:00] VITALS: BP 125/65; TEMP 98.1; O2SAT 95
[2024-05-22 15:14] VITALS: BP 100/54; TEMP 98.2; O2SAT 95
[2024-05-22 20:15] VITALS: BP 138/65; TEMP 98.7; O2SAT 96
[2024-05-23 05:31] VITALS: BP 131/73; TEMP 98.8; O2SAT 98
[2024-05-23 07:20] LABS: BASOPHILS % (AUTO) 0.7 % (0.0-2.0); EOSINOPHILS # (AUTO) 0.1 K/uL (0.0-0.7); HEMATOCRIT 25.9 % (31.2-41.9); LYMPHOCYTES % (AUTO) 36.5 % (20.5-51.5); MEAN CORPUSCULAR HEMOGLOBIN 31.2 uug (24.7-32.8); MEAN CORPUSCULAR HGB CONC 35 g/dL (32.3-35.6); MONOCYTES # (AUTO) 0.5 K/uL (0.1-1.30); MONOCYTES % (AUTO) 9.1 % (0.0-11.0); NEUTROPHILS # (AUTO) 2.8 K/uL (1.8-8.9); NEUTROPHILS % (AUTO) 52.7 % (38.5-71.5); PLATELET COUNT (AUTO) 668 K/uL (179-408); RED BLOOD CELL COUNT(AUTO) 2.88 MIL/uL (3.63-4.92); RED CELL DISTRIBUTION WIDTH 18.2 % (12.3-17.7); WHITE BLOOD COUNT (AUTO) 5.4 K/uL (3.8-11.8)
[2024-05-23 07:23] LABS: ALANINE AMINOTRANSFERASE 15 U/L (14-59); ALBUMIN 2.6 g/dL (3.4-5.0); ALKALINE PHOSPHATASE 107 U/L (50-136); ASPARTATE AMINOTRANSFERASE 17 U/L (15-37); BILIRUBIN,TOTAL 0.4 mg/dL (0.2-1.0); CALCIUM 9.1 mg/dL (8.5-10.1); CARBON DIOXIDE 28 mmol/L (21-32); CHLORIDE 93 mmol/L (98-107); CREATININE 0.6 mg/dL (0.6-1.3); GLUCOSE 98 mg/dL (74-106); MAGNESIUM 1.6 mg/dL (1.8-2.4); PHOSPHOROUS 3.6 mg/dL (2.5-4.9); POTASSIUM 3.2 mmol/L (3.5-5.1); SODIUM SERUM 128 mmol/L (136-145); TOTAL PROTEIN, SERUM 7.2 g/dL (6.4-8.2); UREA NITROGEN, BLOOD 9 mg/dL (7-18)
[2024-05-23 07:35] LABS: DIFFERENTIAL COMMENT 1
[2024-05-23] MEDS: MAGNESIUM OXIDE 400 MG TABLET PO ONE (11:44)
[2024-05-23] MEDS: POTASSIUM CHLORIDE 20 MEQ TAB.PRT.SR PO ONE (11:44)
[2024-05-23 13:00] VITALS: BP 107/55; TEMP 98.5; O2SAT 95
[2024-05-23 16:36] VITALS: BP 128/56; TEMP 98.9; O2SAT 96
[2024-05-23 20:00] VITALS: BP 140/68; TEMP 96.5; O2SAT 91
[2024-05-24 04:00] VITALS: BP 129/76; TEMP 97.1; O2SAT 96
[2024-05-24 08:00] LABS: BASOPHILS # (AUTO) 0.1 K/UL (0.0-0.2); DIFFERENTIAL COMMENT 0; EOSINOPHILS # (AUTO) 0.1 K/uL (0.0-0.7); EOSINOPHILS % (AUTO) 1.1 % (0.0-7.0); HEMATOCRIT 27.6 % (31.2-41.9); HEMOGLOBIN 9.5 g/dL (10.9-14.3); LYMPHOCYTES # (AUTO) 2.2 K/uL (0.8-4.8); LYMPHOCYTES % (AUTO) 40.5 % (20.5-51.5); MEAN CORPUSCULAR HEMOGLOBIN 31.1 uug (24.7-32.8); MEAN CORPUSCULAR HGB CONC 35 g/dL (32.3-35.6); MEAN CORPUSCULAR VOLUME 90.2 fL (75.5-95.3); MONOCYTES # (AUTO) 0.5 K/uL (0.1-1.30); MONOCYTES % (AUTO) 9.7 % (0.0-11.0); NEUTROPHILS # (AUTO) 2.6 K/uL (1.8-8.9); NEUTROPHILS % (AUTO) 47.7 % (38.5-71.5); PLATELET COUNT (AUTO) 655 K/uL (179-408); RED BLOOD CELL COUNT(AUTO) 3.06 MIL/uL (3.63-4.92); RED CELL DISTRIBUTION WIDTH 18.2 % (12.3-17.7); WHITE BLOOD COUNT (AUTO) 5.5 K/uL (3.8-11.8)
[2024-05-24 08:05] LABS: CALCIUM 9.2 mg/dL (8.5-10.1); CARBON DIOXIDE 28 mmol/L (21-32); CHLORIDE 93 mmol/L (98-107); CREATININE 0.7 mg/dL (0.6-1.3); GLUCOSE 123 mg/dL (74-106); POTASSIUM 4.1 mmol/L (3.5-5.1); SODIUM SERUM 130 mmol/L (136-145); UREA NITROGEN, BLOOD 10 mg/dL (7-18)
[2024-05-24] MEDS: ENSURE ENLIVE (VAN) 240 ML LIQUID PO SCH (16:31)
[2024-05-24 19:00] VITALS: BP 127/67; TEMP 98.9; O2SAT 96
[2024-05-25 06:00] VITALS: BP 125/67; TEMP 98.9; O2SAT 97
[2024-05-25 15:07] VITALS: BP 117/60; TEMP 98.4; O2SAT 96
[2024-05-25 19:00] VITALS: BP 112/58; TEMP 98.8; O2SAT 95
[2024-05-26 06:00] VITALS: BP 133/71; TEMP 98.8; O2SAT 96
[2024-05-26 08:16] VITALS: BP 120/66
== END 2024-05-26 11:35 | disposition home health service (06) | DRG 560 ==
PROVIDERS: ADMIT Physical Medicine & Rehabilitation Pain Medicine; ATTEND Physical Medicine & Rehabilitation Pain Medicine
DX: Z47.1 Aftercare following joint replacement surgery (principal); E22.2 Syndrome of inappropriate secretion of antidiuretic hormone; Z74.09 Other reduced mobility; D64.9 Anemia, unspecified; G40.909 Epilepsy, unspecified, not intractable, without status epilepticus; I10 Essential (primary) hypertension; Z96.641 Presence of right artificial hip joint; Z91.81 History of falling; R97.0 Elevated carcinoembryonic antigen [CEA]; E83.42 Hypomagnesemia; E87.6 Hypokalemia; K57.30 Diverticulosis of large intestine without perforation or abscess without bleeding; Z87.440 Personal history of urinary (tract) infections
CPT/HCPCS: 36415; 73502; 83735; 84100; 84443; 84550; 85025; 86850; 86900; 86901; 86920; J1650; P9016